=== PATIENT | male | born 1980 | race American Indian/Alaskan Native ===

== ENCOUNTER 2017-12-31 16:13 | Emergency (ER) | payer MEDICAID ==
[2017-12-31 16:13] VITALS: BMI 25.1
[2017-12-31 17:08] LABS: BASO # 0.1 K/uL (0.0-0.2); BASO % 1.3 % (0.0-2.0); EOS # 0.1 K/uL (0.0-0.7); EOS % 0.7 % (0.0-4.0); HEMOGLOBIN 15.3 g/dL (12.0-18.0); LYMPH % 27.4 % (20.0-40.0); MEAN CELL VOLUME 95.9 fl (80.0-94.0); MEAN CORPUSCULAR HEMOGLOBIN 33.2 pg (27.0-31.0); MEAN CORPUSCULAR HGB CONC 34.6 g/dL (33.0-37.0); MEAN PLATELET VOLUME 9.2 fl (7.2-11.7); MONO # 0.5 K/uL (0.0-0.8); MONO % 6.6 % (0.0-10.0); NEUT # 4.7 K/uL (1.8-7.0); NRBC % 0.1 % (0.0-0.0); RBC 4.61 Mil/uL (4.40-5.90); WHITE BLOOD COUNT 7.4 K/uL (4.8-10.8)
--- NOTE | 2017-12-31 17:16 | ED PDOC ---
HPI: Seizure Time Seen by Provider: 12/31/17 16:33 Chief Complaint (Nursing): Seizure Chief Complaint (Provider): i had a seizure History Per: Patient History/Exam Limitations: clinical condition Recent Seizure Activity Began: Just Before Arrival Number Of Seizures: One Length Of Seizures (Duration): Unknown Quality Of Seizure: Generalized Precipitating Factor(s): Recent Alcohol Ingestion, Recent Street Drugs Additional Complaint(s): 37yo male states had a seizure prior to arrival. States drank alcohol and smoked PCP today. Denies current headache, neck shoulder or back pain. Admits to noncompliance w mariah. Requesting a dinner tray. Uncooperative for full exam. Past Medical History Vital Signs: Last Vital Signs Temp 98.6 F 12/31/17 16:20 Pulse 86 12/31/17 16:20 Resp 20 12/31/17 16:20 BP 121/78 12/31/17 16:20 Pulse Ox 100 12/31/17 17:16 - Medical History PMH: Anxiety, Bipolar Disorder, CVA, Depression - Family History Family History: States: Unknown Family Hx - Living Arrangements Living Arrangements: Other - Social History Current smoker - smoking cessation education provided: Yes Alcohol: > 2 Drinks/Day Drugs: Methamphetamine - Immunization History Hx Tetanus Toxoid Vaccination: Yes Hx Influenza Vaccination: Yes Hx Pneumococcal Vaccination: Yes - Home Medications Home Medications: Ambulatory Orders Medication Instructions Recorded Cough Syrup 01/02/16 Percocet 5-325 mg Tablet 01/02/16 Walker [Rolling Walker] 1 dev XX PRN PRN #1 dev 01/30/16 - Allergies Allergies/Adverse Reactions: Allergies Allergy/AdvReac Type Severity Reaction Status Date / Time No Known Allergies Allergy Verified 12/31/17 16:20 Review of Systems Review Of Systems: ROS cannot be obtained secondary to pt's inabilty to answer questions. (uncooperative) Physical Exam - Reviewed Nursing Documentation Reviewed: Yes Vital Signs Reviewed: Yes - Physical Exam Appears: Positive for: Non-toxic (uncoopertative), No Acute Distress Head Exam: Positive for: ATRAUMATIC, NORMAL INSPECTION, NORMOCEPHALIC Skin: Positive for: Normal Color, Warm, DRY Eye Exam: Positive for: EOMI, Normal appearance, PERRL ENT: Positive for: Normal ENT Inspection Neck: Positive for: Normal, Painless ROM Cardiovascular/Chest: Positive for: Regular Rate, Rhythm Respiratory: Positive for: CNT, Normal Breath Sounds Gastrointestinal/Abdominal: Positive for: Normal Exam, Soft Back: Positive for: Normal Inspection Extremity: Positive for: Normal ROM Neurologic/Psych: Positive for: Alert, Oriented - Laboratory Results Result Diagrams: 12/31/17 16:49 12/31/17 16:49 - ECG O2 Sat by Pulse Oximetry: 100 Medical Decision Making Medical Decision Making: workup for recurrent seizure and substance abuse initiated no evidence head trauma on exam labs reviewed, etoh neg and chem/cbc unremarkable pt refused EKG 6p tolerated dinner, fell asleep 720p awake, alert DC from ED. Disposition - Clinical Impression Clinical Impression: Seizure disorder - Patient ED Disposition Is Patient to be Admitted: No - Disposition Disposition: Routine/Home Disposition Time: 19:31 Condition: STABLE Instructions: Seizures, Adult (DC) Forms: [employer] (Gibraltarian)
[2017-12-31 17:20] LABS: ALB/GLOB RATIO 1.3 (1.0-2.1); ALBUMIN 4.5 g/dL (3.5-5.0); ALT/SGPT 32 U/L (21-72); AST/SGOT 45 U/L (17-59); BLOOD UREA NITROGEN 19 mg/dl (9-20); CALCIUM 9.4 mg/dL (8.4-10.2); GFR AFRICAN-AMERICAN > 60; GFR NON-AFRICAN AMERICAN > 60
[2017-12-31 19:47] VITALS: BP 141/83; PULSE 88; RESP 18; TEMP 98.4; O2SAT 99
== END 2017-12-31 20:05 | disposition home or self-care (01) ==
LOC: H.ER 16:13
DX: G40.909 Epilepsy, unspecified, not intractable, without status epilepticus (principal); Z86.73 Personal history of transient ischemic attack (TIA), and cerebral infarction without residual deficits; Z91.14 Patient's other noncompliance with medication regimen

== ENCOUNTER 2017-12-31 22:19 | Emergency (ER) | payer MEDICAID ==
[2017-12-31 22:19] VITALS: BMI 25.1
[2017-12-31 22:23] VITALS: BP 117/72; PULSE 79; RESP 16; TEMP 98.5; O2SAT 98
--- NOTE | 2017-12-31 22:47 | ED PDOC ---
HPI: Psych/Substance Abuse Time Seen by Provider: 12/31/17 22:24 Chief Complaint (Nursing): Substance Abuse Chief Complaint (Provider): Substance Abuse ED Caveat: Uncooperative, Other (Under the influence) History Per: Patient, EMS Onset/Duration Of Symptoms: Mins Additional Complaint(s): Patient is a 37 year old male who presents via EMS for evaluation as patient was undressing in the park. Patient has a history of PCP abuse and was seen earlier today and discharged from [place] ED. Patient admits to drinking alcohol and smoking PCP today. Patient has no complaints at present, however is uncooperative and will not answer all questions as he wishes to sleep. PMD: None provided Past Medical History Reviewed: Historical Data, Nursing Documentation, Vital Signs Vital Signs: Last Vital Signs Temp 98.5 F 12/31/17 22:23 Pulse 79 12/31/17 22:23 Resp 16 12/31/17 22:23 BP 117/72 12/31/17 22:23 Pulse Ox 98 12/31/17 22:23 - Medical History PMH: Anxiety, Bipolar Disorder, CVA, Depression - Family History Family History: States: Unknown Family Hx - Social History Current smoker - smoking cessation education provided: Yes Alcohol: > 2 Drinks/Day Drugs: Methamphetamine - Home Medications Home Medications: Ambulatory Orders Medication Instructions Recorded Cough Syrup 01/02/16 Percocet 5-325 mg Tablet 01/02/16 Walker [Rolling Walker] 1 dev XX PRN PRN #1 dev 01/30/16 - Allergies Allergies/Adverse Reactions: Allergies Allergy/AdvReac Type Severity Reaction Status Date / Time No Known Allergies Allergy Verified 12/31/17 22:22 Review of Systems Review Of Systems: ROS cannot be obtained secondary to pt's inabilty to answer questions. (uncooperative) Physical Exam - Reviewed Nursing Documentation Reviewed: Yes Vital Signs Reviewed: Yes - Physical Exam Appears: Positive for: Non-toxic, No Acute Distress Head Exam: Positive for: ATRAUMATIC, NORMOCEPHALIC Skin: Positive for: Normal Color, Warm, Dry Eye Exam: Positive for: Normal appearance, EOMI, PERRL ENT: Positive for: Other (Airway patent, (-) stridor) Neck: Positive for: Painless ROM, Supple Cardiovascular/Chest: Positive for: Regular Rate, Rhythm Respiratory: Positive for: Normal Breath Sounds (Respirations even and nonlabored.). Negative for: Decreased Breath Sounds, Accessory Muscle Use, Respiratory Distress Gastrointestinal/Abdominal: Positive for: Soft. Negative for: Tenderness, Distended Back: Negative for: Vertebral Tenderness Neurologic/Psych: Positive for: Alert, Oriented (x3) - ECG O2 Sat by Pulse Oximetry: 98 (RA) Pulse Ox Interpretation: Normal Medical Decision Making Medical Decision Makin Clinical Impression: Substance Abuse Plan: -Clinical sobriety -Labs reviewed from ED visit earlier today. -Re-evaluation 2314 Patient sleeping comfortably in ED exam room. Tolerating PO intake. No acute distress noted. 2339 On re-evaluation, patient offers no additional complaints. Patient remains AAOx3 , in no acute distress. Neck is supple, lungs CTA, cardiac RRR, abdomen is soft and non-tender, neuro exam shows no focal findings. VSS, stable for discharge. Diagnostic results d/w the patient in great detail. Dx of substance abuse d/w the patient. Based on history, exam and diagnostic results plan will be for discharge and outpatient follow up. Advised to follow up with primary care physician/clinic in 1-2 days without fail. Return to the emergency room at any time for any new or worsening symptoms. Patient states he fully agrees with and understands discharge instructions. States that he agrees with the plan and disposition. Verbalized and repeated discharge instructions and plan. I have given the patient opportunity to ask any additional questions. Disposition - Clinical Impression Clinical Impression: PCP (phencyclidine) abuse, Substance abuse - Patient ED Disposition Is Patient to be Admitted: No Counseled Patient/Family Regarding: Diagnosis, Need For Followup - Disposition Referrals: [facility] [Outside] Disposition: Routine/Home Disposition Time: 23:41 Condition: FAIR Additional Instructions: FOLLOW UP WITH CLINIC NEEDED. RETURN TO ED WITH ANY NEW OR WORSENING SYMPTOMS. Instructions: Drug Abuse and Drug Addiction (DC), Drug Abuse Treatment Forms: [employer] (Zambian) Print Language: ARABIC - POA Present On Arrival: None
== END 2018-01-01 00:06 | disposition home or self-care (01) ==
LOC: H.ER 22:19
DX: F19.10 Other psychoactive substance abuse, uncomplicated (principal); F17.200 Nicotine dependence, unspecified, uncomplicated; F31.9 Bipolar disorder, unspecified; F41.9 Anxiety disorder, unspecified; Z86.73 Personal history of transient ischemic attack (TIA), and cerebral infarction without residual deficits